=== PATIENT | female | born 1960 | race Two or more races ===

== ENCOUNTER → 2019-11-29 | Outpatient (CLI) | payer OTHER ==
[2019-11-29 07:46] LABS: ALANINE AMINOTRANSFERASE 82 U/L (12-78); ALBUMIN 3.7 g/dL (3.4-5.0); ANION GAP 8 mmol/L (5-15); CALCIUM 9.3 mg/dL (8.5-10.1); CHLORIDE 109 mmol/L (98-107); CREATININE 0.69 mg/dL (0.55-1.02)
[2019-11-29 07:48] LABS: ALKALINE PHOSPHATASE 124 U/L (45-117); BILIRUBIN,TOTAL 0.6 mg/dL (0.2-1.0); TOTAL PROTEIN 8.1 g/dL (6.4-8.2)
== END | disposition home or self-care (01) ==
LOC: LAB 07:00
PROVIDERS: ATTEND Internal Medicine Gastroenterology
DX: R79.89 Other specified abnormal findings of blood chemistry (principal)
CPT/HCPCS: 36415; 80053; 86704; 86706; 86803; 87340

== ENCOUNTER 2020-11-08 11:32 | Inpatient (IN) | payer OTHER ==
[~2020-11-08] VITALS: Ht 152.4 cm; Wt 60.3 kg
--- NOTE | 2020-11-08 12:38 | NUR ---
bobbin drier: pt from lobby to room 11
--- NOTE | 2020-11-08 12:55 | NUR ---
MD assessment with rectal exam completed.
[2020-11-08] MEDS ORDERED: LOVA20TA2 PO (13:16)
[2020-11-08] MEDS ORDERED: LISI-170 PO (13:16)
[2020-11-08] MEDS ORDERED: ASPI-963 PO (13:16)
[2020-11-08] MEDS ORDERED: HYDR25TA6 PO (13:16)
[2020-11-08] MEDS ORDERED: METO50TA82 PO (13:16)
[2020-11-08] MEDS ORDERED: MORPHINE SULFATE 4 MG/ML, 1ML ONE (13:24)
[2020-11-08] MEDS ORDERED: ONDANSETRON 2MG/ML, 2ML ONE (13:24)
[2020-11-08] MEDS ORDERED: SODIUM CHLORIDE FLUSH 10ML SYR IVF ONE (13:30)
[2020-11-08] MEDS ORDERED: ONDANSETRON 2MG/ML, 2ML IVPush ONE (13:30)
[2020-11-08] MEDS ORDERED: MORPHINE SULFATE 4 MG/ML, 1ML IVPush PRN (13:30)
--- NOTE | 2020-11-08 13:35 | NUR ---
Pt assisted with standby assist to restroom for UA sample. <10mL of dark yellow uop noted and walked to lab. Pt medicated at this time for pain and nausea as well. Call light in reach with warm blanket in use.
[2020-11-08 13:36] LABS: BASOPHILS % (AUTO) 0 % (0-1); EOSINOPHILS % (AUTO) 1 % (1-7); LYMPHOCYTES % (AUTO) 23 % (22-44); MEAN CORPUSCULAR HEMOGLOBIN 33.8 pg (27.0-34.8); MEAN CORPUSCULAR HGB CONC 34.6 g/dL (32.4-35.8); MEAN PLATELET VOLUME 11.4 fL (7.4-10.4); MONOCYTES % (AUTO) 10 % (2-9); NEUTROPHILS % (AUTO) 65 % (42-75); PLATELET COUNT 308 x10^3/uL (130-400); RED BLOOD COUNT 3.79 x10^6/uL (3.82-5.3); RED CELL DISTRIBUTION WIDTH 15.2 % (9.6-15.2)
[2020-11-08 13:41] LABS: MD NO
[2020-11-08 13:43] LABS: ALBUMIN 3.1 g/dL (3.4-5.0); ANION GAP 15 mmol/L (5-15); CALCIUM 9.5 mg/dL (8.5-10.1); CHLORIDE 90 mmol/L (98-107)
[2020-11-08 13:46] LABS: ALANINE AMINOTRANSFERASE 101 U/L (12-78); ALKALINE PHOSPHATASE 341 U/L (45-117); CREATININE 2.23 mg/dL (0.55-1.02); TOTAL PROTEIN 7.6 g/dL (6.4-8.2)
[2020-11-08 14:12] LABS: MICROSCOPIC INDICATED
[2020-11-08] MEDS ORDERED: NS + 40MEQ KCL 1,000 ML IV ONE (14:16)
[2020-11-08] MEDS ORDERED: SODIUM CHLORIDE 0.9%, 500ML IVBOLUS ONE ×2 (14:30→15:30)
[2020-11-08] MEDS ORDERED: NS + 40MEQ KCL 1,000 ML IV SCH (14:30)
--- NOTE | 2020-11-08 14:50 | NUR ---
task RN: pt ypotensive. laid flat and IV#2 initiated to complete fluid bolus
--- NOTE | 2020-11-08 15:04 | NUR ---
task RN: Dr. Abbasi at bedside for eval. pt continues to be hypotensive. per VO at bedside pt can ave another 500cc fluid bolus pt admits to drinking 1 pint of vodka per day for the last 3 years. pt reports that her last ETOH drink was yesterday. no tremulous activity noted. pt to be admitted
--- NOTE | 2020-11-08 15:17 | NUR ---
task RN: seizure precautions in place
--- NOTE | 2020-11-08 15:33 | NUR ---
Reassumed care and pt VS noted to be with MAP=67 and A/O x4 with liter NS bolus infused. Pt being taken to CT at this time.
--- NOTE | 2020-11-08 15:50 | NUR ---
Pt back to room without acute change noted while off unit.
--- NOTE | 2020-11-08 16:30 | NUR ---
O2 applied for decreased sat while asleep. Pt A/Ox4, smaller BP cuff applied to fit pt's size better and BP reassessed. Remains lower with MAP>65mmHg and 1500mL fluid already infused between NS 1 liter bolus and NS with 40mEq KCl at 250mL/hr x2 hours completed.
--- NOTE | 2020-11-08 16:55 | NUR ---
Report given to meal break RN and care transferred.
[2020-11-08] MEDS ORDERED: LORazepam 1MG TABLET PO PRN ×4 (17:30)
[2020-11-08] MEDS ORDERED: LIDODERM 5% PATCH TD PRN (17:30)
[2020-11-08] MEDS ORDERED: CHLORDIAZEPOXIDE 25 MG CAPSULE PO PRN ×3 (17:30)
[2020-11-08] MEDS ORDERED: LORazepam 2 MG/ML, 1ML IV PRN ×6 (17:30)
[2020-11-08] MEDS ORDERED: LORazepam 0.5MG TABLET PO PRN (17:30)
[2020-11-08] MEDS ORDERED: CHLORDIAZEPOXIDE 10 MG CAPSULE PO PRN (17:30)
[2020-11-08] MEDS ORDERED: ENALAPRILAT 1.25 MG/ML, 2ML IVPush PRN (17:30)
[2020-11-08] MEDS ORDERED: POTASSIUM CHLORIDE 40 MEQ in SODIUM CHLORIDE 0.9% 500 ML IV ONE ×2 (17:30→18:33)
--- NOTE | 2020-11-08 17:30 | NUR ---
Report received from meal break RN and care reassumed. Pt remains hypotensive with MAP>65mmHg, A/O x4 and no active bleeding or BM's since arrival to ED.
--- NOTE | 2020-11-08 17:49 | NUR ---
Report called to [facility] and pt readied for transport to floor.
[2020-11-08] MEDS ORDERED: FOLIC ACID 1 MG TABLET PO ONE (18:35)
[2020-11-08] MEDS ORDERED: THIAMINE 200 MG in DEXTROSE 5% 50 ML IVPB ONE (18:36)
[2020-11-08 19:29] VITALS: BP 105/73
[2020-11-08] MEDS: PANTOPRAZOLE 40 MG IV IVPush SCH (20:20)
[2020-11-08] MEDS: CEFTRIAXONE PMX 2GM/50ML 50 ML IVPB SCH (22:43)
[2020-11-08] MEDS ORDERED: FOLIC ACID 5 MG/ML IM ONE (23:30)
[2020-11-09] MEDS: morphine SULFATE 10 MG/ML, 1ML IVPush PRN ×2 (00:34→09:55)
[2020-11-09 01:34] VITALS: BP 112/57
[2020-11-09 04:03] LABS: BASOPHILS % (AUTO) 1 % (0-1); EOSINOPHILS % (AUTO) 2 % (1-7); LYMPHOCYTES % (AUTO) 25 % (22-44); MEAN CORPUSCULAR HEMOGLOBIN 33.7 pg (27.0-34.8); MEAN PLATELET VOLUME 11.5 fL (7.4-10.4); MONOCYTES % (AUTO) 11 % (2-9); NEUTROPHILS % (AUTO) 61 % (42-75); PLATELET COUNT 182 x10^3/uL (130-400); RED BLOOD COUNT 3.17 x10^6/uL (3.82-5.3); RED CELL DISTRIBUTION WIDTH 15.7 % (9.6-15.2)
[2020-11-09 04:05] LABS: ANION GAP 11 mmol/L (5-15); CALCIUM 7.8 mg/dL (8.5-10.1); CHLORIDE 107 mmol/L (98-107); CREATININE 1.79 mg/dL (0.55-1.02)
[2020-11-09 04:16] LABS: MD NO
[2020-11-09] MEDS: NS + 20MEQ KCL 1,000 ML IV SCH ×3 (04:53→21:45)
[2020-11-09] MEDS ORDERED: AMLO-211 PO (06:20)
[2020-11-09] MEDS ORDERED: TICA90TA PO (06:20)
[2020-11-09] MEDS ORDERED: AA8/1CAP3 PO (06:20)
[2020-11-09] MEDS ORDERED: SEVE800T8 PO (06:20)
[2020-11-09] MEDS ORDERED: ATOR-2 PO (06:20)
[2020-11-09] MEDS ORDERED: CYCL10TA2 PO (06:20)
[2020-11-09] MEDS ORDERED: DULO30CA2 PO (06:20)
[2020-11-09] MEDS ORDERED: HYDR-3342 PO (06:20)
[2020-11-09] MEDS ORDERED: FLUT15.845 NAS (06:20)
[2020-11-09] MEDS ORDERED: ROPI0.5T4 PO (06:20)
[2020-11-09] MEDS ORDERED: ONDA-89 PO (06:20)
[2020-11-09] MEDS ORDERED: OXYC10TA6 PO (06:20)
[2020-11-09] MEDS ORDERED: ISOS30TA8 PO (06:20)
[2020-11-09] MEDS ORDERED: POTASSIUM CHLORIDE 40 MEQ in SODIUM CHLORIDE 0.9% 500 ML IV ONE (07:30)
[2020-11-09 07:49] VITALS: BP 120/82
[2020-11-09] MEDS: PANTOPRAZOLE 40 MG IV IVPush SCH ×2 (08:21→20:49)
[2020-11-09 12:29] VITALS: BP 117/80
[2020-11-09] MEDS ORDERED: GOLYTELY 4,000ML ORAL.SOL PO ONE (17:30)
[2020-11-09 18:37] VITALS: BP 118/78
[2020-11-09] MEDS: CEFTRIAXONE PMX 2GM/50ML 50 ML IVPB SCH (22:30)
[2020-11-10 00:12] VITALS: BP 126/76
[2020-11-10] MEDS: NS + 20MEQ KCL 1,000 ML IV SCH ×2 (04:52→14:44)
[2020-11-10 06:18] LABS: BASOPHILS % (AUTO) 1 % (0-1); EOSINOPHILS % (AUTO) 2 % (1-7); LYMPHOCYTES % (AUTO) 19 % (22-44); MEAN CORPUSCULAR HGB CONC 33.9 g/dL (32.4-35.8); MEAN PLATELET VOLUME 10.6 fL (7.4-10.4); MONOCYTES % (AUTO) 11 % (2-9); NEUTROPHILS % (AUTO) 67 % (42-75); PLATELET COUNT 187 x10^3/uL (130-400); RED CELL DISTRIBUTION WIDTH 15.5 % (9.6-15.2)
[2020-11-10 06:19] LABS: MD NO
[2020-11-10 06:30] LABS: ANION GAP 8 mmol/L (5-15); CALCIUM 8.1 mg/dL (8.5-10.1); CHLORIDE 108 mmol/L (98-107)
[2020-11-10 06:31] LABS: CREATININE 0.91 mg/dL (0.55-1.02)
[2020-11-10 07:56] VITALS: BP 145/99
[2020-11-10] MEDS: THIAMINE 100 MG in DEXTROSE 5% 50 ML IVPB SCH (07:58)
[2020-11-10] MEDS: PANTOPRAZOLE 40 MG IV IVPush SCH ×2 (07:58→20:42)
[2020-11-10] MEDS ORDERED: CHLORHEXIDINE 15 ML UDC ONE (11:08)
[2020-11-10] MEDS ORDERED: ONDANSETRON 2MG/ML, 2ML ONE (12:22)
[2020-11-10] MEDS ORDERED: ONDANSETRON 2MG/ML, 2ML IVPush PRN (13:00)
[2020-11-10 13:35] VITALS: BP 133/74
[2020-11-10 18:44] VITALS: BP 124/83
[2020-11-10] MEDS: CEFTRIAXONE PMX 2GM/50ML 50 ML IVPB SCH ×2 (20:42→23:03)
[2020-11-11] MEDS: NS + 20MEQ KCL 1,000 ML IV SCH (00:39)
[2020-11-11 03:02] VITALS: BP 120/80
[2020-11-11 06:36] VITALS: BP 162/117
[2020-11-11] MEDS ORDERED: METOPROLOL TARTRATE 25 MG TAB PO SCH (08:00)
[2020-11-11] MEDS: THIAMINE 100 MG in DEXTROSE 5% 50 ML IVPB SCH (08:07)
[2020-11-11] MEDS: PANTOPRAZOLE 40 MG IV IVPush SCH (08:08)
== END 2020-11-11 15:25 | disposition home or self-care (01) | DRG 377 ==
LOC: ED 13:48 → EDIP 16:27 → 4EST 18:32
PROVIDERS: ADMIT Internal Medicine; ATTEND Hospitalist
PROC: 0T9B30Z Drainage of Bladder with Drainage Device, Percutaneous Approach (ICD-10-PCS; 2020-11-08)
PROC: 0DBL8ZZ Excision of Transverse Colon, Via Natural or Artificial Opening Endoscopic (ICD-10-PCS; principal; 2020-11-09)
DX: K92.2 Gastrointestinal hemorrhage, unspecified (principal); N17.0 Acute kidney failure with tubular necrosis; E87.1 Hypo-osmolality and hyponatremia; D62 Acute posthemorrhagic anemia; E78.5 Hyperlipidemia, unspecified; E86.0 Dehydration; E87.6 Hypokalemia; E87.8 Other disorders of electrolyte and fluid balance, not elsewhere classified; F10.20 Alcohol dependence, uncomplicated; F17.210 Nicotine dependence, cigarettes, uncomplicated; R94.5 Abnormal results of liver function studies; I10 Essential (primary) hypertension; Z20.822 Contact with and (suspected) exposure to COVID-19; K52.9 Noninfective gastroenteritis and colitis, unspecified; K80.20 Calculus of gallbladder without cholecystitis without obstruction; Z82.49 Family history of ischemic heart disease and other diseases of the circulatory system; Z90.49 Acquired absence of other specified parts of digestive tract; Z90.710 Acquired absence of both cervix and uterus
CPT/HCPCS: 36415; 74176; 80048; 80053; 81001; 83690; 83735; 84100; 84132; 85014; 85018; 85025; 87086; 87635; 88305; 93005; 96374; 96375; G0378; J0696; J2405; J3411; J3480; C9113; J2270; J7040

== ENCOUNTER 2021-02-20 12:42 | Emergency (ER) | payer OTHER ==
[~2021-02-20] VITALS: Ht 152.4 cm; Wt 57.0 kg
[~2021-02-20 12:42] MED LIST: AA8/1CAP3 PO; AMLO-211 PO; ASPI-963 PO; ATOR-2 PO; CYCL10TA2 PO; DULO30CA2 PO; FLUT15.845 NAS; HYDR-3342 PO; HYDR25TA6 PO; ISOS30TA8 PO; LISI-170 PO; LOVA20TA2 PO; METO50TA82 PO; ONDA-89 PO; OXYC10TA6 PO; ROPI0.5T4 PO; SEVE800T8 PO; TICA90TA PO
--- NOTE | 2021-02-20 13:00 | NUR ---
PT AMBULATORY TO ROOM FROM TRIAGE, CONNECTED TO MONITORS. PT C/O GONZALEZ/DIZZINESS STARTING AT 0600 THIS AM. PT STATES HER LEFT SIDE SEEMS TO BE DRAGGING. CALL LIGHT WITHIN REACH.
--- NOTE | 2021-02-20 13:08 | NUR ---
ERP AT BS FOR EVAL
[2021-02-20] MEDS ORDERED: MECLIZINE CHEWABLE 25 MG TAB ONE (13:20)
--- NOTE | 2021-02-20 13:25 | NUR ---
PT TO CT
[2021-02-20] MEDS ORDERED: MECLIZINE CHEWABLE 25 MG TAB PO ONE (13:30)
--- NOTE | 2021-02-20 13:30 | NUR ---
PT BACK FROM CT
[2021-02-20 13:57] LABS: ALBUMIN 3.6 g/dL (3.4-5.0); ANION GAP 4 mmol/L (5-15); CALCIUM 9.1 mg/dL (8.5-10.1); CHLORIDE 107 mmol/L (98-107); CREATININE 0.55 mg/dL (0.55-1.02)
[2021-02-20 14:00] LABS: TROPONIN I < 0.015 ng/mL (0.000-0.045)
[2021-02-20 14:05] LABS: MICROSCOPIC NOT IND
--- NOTE | 2021-02-20 14:11 | NUR ---
BREAK RN: TELEPHONE CALL FROM LAB, NEED CBC REDRAW D/T CLOTTING.
[2021-02-20 14:46] LABS: BASOPHILS % (AUTO) 1 % (0-1); EOSINOPHILS % (AUTO) 5 % (1-7); LYMPHOCYTES % (AUTO) 39 % (22-44); MEAN CORPUSCULAR HEMOGLOBIN 30.3 pg (27.0-34.8); MEAN CORPUSCULAR HGB CONC 33.4 g/dL (32.4-35.8); MEAN PLATELET VOLUME 10.9 fL (7.4-10.4); MONOCYTES % (AUTO) 6 % (2-9); NEUTROPHILS % (AUTO) 48 % (42-75); PLATELET COUNT 230 x10^3/uL (130-400); RED BLOOD COUNT 4.73 x10^6/uL (3.82-5.3); RED CELL DISTRIBUTION WIDTH 14.3 % (9.6-15.2)
[2021-02-20] MEDS ORDERED: DIAZEPAM 5 MG TABLET ONE (15:17)
[2021-02-20 15:18] VITALS: BP 156/91
--- NOTE | 2021-02-20 15:24 | NUR ---
PT MEDICATED PER JIMENA HAYWARD. AT BS. CALL LIGHT WITHIN REACH. PT STATES NO NEEDS AT THIS TIME
[2021-02-20] MEDS ORDERED: DIAZEPAM 5 MG TABLET PO ONE (15:30)
--- NOTE | 2021-02-20 17:14 | NUR ---
ERP AT FOR RECHECK
--- NOTE | 2021-02-20 17:44 | NUR ---
Patient given discharge instructions and they have confirmed that they understand the instructions. Patient ambulatory with steady gait.
== END 2021-02-20 18:08 | disposition home or self-care (01) ==
LOC: ED 13:57
DX: R42 Dizziness and giddiness (principal); I10 Essential (primary) hypertension; F17.200 Nicotine dependence, unspecified, uncomplicated
CPT/HCPCS: 36415; 70450; 80048; 81003; 82040; 84484; 85025; 93005; 99285